=== PATIENT | male | born 1950 | race Caucasian/White ===

== ENCOUNTER 2017-12-15 10:13 | Day surgery (SDC) | payer MEDICARE ==
[2017-12-15] MEDS: NS 1,000 ML IV (12:59)
[2017-12-15 13:20] LABS: BEDSIDE GLUCOSE 110 MG/DL (80-115)
[2017-12-15] MEDS ORDERED: LIDOCAINE 2% INJ 100 MG/5 ML SDV (FOR ANES.) As Ordered (13:31)
[2017-12-15] MEDS ORDERED: PROPOFOL 200 MG/20 ML VIAL As Ordered (13:31)
== END 2017-12-15 14:26 | disposition home or self-care (01) ==
LOC: M OPP 10:13
DX: Z12.11 Encounter for screening for malignant neoplasm of colon (principal); Z86.010 Personal history of colon polyps; D12.5 Benign neoplasm of sigmoid colon; K64.0 First degree hemorrhoids; K57.30 Diverticulosis of large intestine without perforation or abscess without bleeding; I10 Essential (primary) hypertension; I35.9 Nonrheumatic aortic valve disorder, unspecified; R01.1 Cardiac murmur, unspecified; E11.9 Type 2 diabetes mellitus without complications; M10.9 Gout, unspecified; E03.9 Hypothyroidism, unspecified; R12 Heartburn; K21.9 Gastro-esophageal reflux disease without esophagitis; R06.02 Shortness of breath; M19.90 Unspecified osteoarthritis, unspecified site; F41.9 Anxiety disorder, unspecified; F32.9 Major depressive disorder, single episode, unspecified; G47.30 Sleep apnea, unspecified; R06.83 Snoring; E66.9 Obesity, unspecified; Z79.82 Long term (current) use of aspirin; Z79.899 Other long term (current) drug therapy; Z87.442 Personal history of urinary calculi
CPT/HCPCS: 45385

== ENCOUNTER 2019-03-22 14:24 | Outpatient (RCR) | payer MEDICARE ==
--- NOTE | 2019-03-10 13:57 | CARECAPL ---
Assessment Account #s: Initial Assessment General Diagnoses: AVR Date of event: Jan 13, 2019 Physician: TEO LAWRENCE MD Allergies: Coded Allergies: No Known Allergies (Unverified , 12/07/17) Date Entered Program: Mar 10, 2019 Risk strat for cardiac event: High Exercise Prescription Plan educate and increase endurance through monitored exercise Modalities initiated: Nustep (will add resistance 1 for 10 minutes), Arm Aerometer (will add resistance 1.0 for 6 minutes), Dumbells (will add 1lb weights 8-10 reps), Recumbent Bike (will add resistance 1 for 6 minutes) Frequency: 2 Duration (Minutes) 30-60 minutes total exercise a day. 15-20 work intervals in minutes. prn rest intervals in minutes. Functional Capacity Goal Sustained Metabolic Equivalent of a task (MET) goal of 3.0-4.0 for 15-20 minutes. Intensity: 3-Moderate Progression (METS) Increase by: 0.5 METS every: 3-5 sessions Angina with ex: No Target Heart Rate rest + 35-40 per beta ronnell therapy Resistance Training: Yes Weight (pounds): 1 Reps: 8-12 Medications Scheduled Allopurinol (Zyloprim), 300 MG PO DAILY, (Reported) Amlodipine/Atorvastatin (Amlodipine-Atorvast 5-10 mg), 10 TAB PO DAILY, (Reported) Aspirin (Aspirin EC), 81 MG PO DAILY, (Reported) Atorvastatin Calcium (Atorvastatin Calcium), 40 MG PO DAILY, (Reported) Bupropion Hcl (Bupropion Xl), 150 MG PO DAILY, (Reported) Cetirizine HCl (All Day Allergy), 10 MG PO DAILY, (Reported) Chlorthalidone (Chlorthalidone), 25 MG PO DAILY, (Reported) Citalopram Hydrobromide (Citalopram HBr), 20 MG PO DAILY, (Reported) Colchicine (Colchicine), 0.6 MG PO DAILY, (Reported) Insulin Aspart (Novolog Flexpen), 8 UNITS SC QAM, (Reported) Insulin Aspart (Novolog Flexpen), 18 UNITS SC QPM, (Reported) Insulin Glargine (Lantus), 45 UNITS SC QAM, (Reported) Insulin Glargine (Lantus), 65 UNITS SC QHS, (Reported) Levothyroxine Sodium (Levothyroxine Sodium), 75 MCG PO DAILY, (Reported) Liraglutide (Victoza 2-Christopher), 1.8 MG SC DAILY, (Reported) Metformin HCl (Metformin HCl), 1,500 MG PO DAILY, (Reported) Metoprolol Succinate (Metoprolol Succinate), 75 MG PO DAILY, (Reported) [place]-3/Dha/Epa/Fish Oil (Fish Oil 1,200 mg Softgel), 1 CAP PO DAILY, (Reported) Omeprazole (Omeprazole), 20 MG PO DAILY, (Reported) Valsartan (Valsartan), 160 MG PO DAILY, (Reported) Scheduled PRN Lidocaine (Lidocaine), 5 % EX PRN PRN for PAIN, (Reported) Target Goals Individual exercise Rx (1) BP 140/90 or 130/80 if DM or CKD (1) Aerobic active 30+min 5 days per week (1) Nutrition Date: Mar 10, 2019 Assessment: Initial Assessment Lipids Total Cholesterol (119), High Density Lipids (HDL) (47), Low Density Lipids (LDL) (61), Triglycerides (45), Lipid med/supplement (atorvastatin) Duration 10/27/18 Lipid- med/supplement atorvastatin Diabetes medication victoza, novolog, lantus and metformin Monitor Blood Sugar at home: Yes Frequency daily Weight Management Weight (lbs): 261.4 Height (inches): 70 Waist Circumference (Inches): 51 BMI: 37.45 Weight goal: 180 Special Diet: mediteranean diet Alcohol: special Alcohol Type: beer Alcohol Amount: 1 Diet Access Tool: Rate your plate Score: 45 Intervention Work Order Clerk Consult: No Nurse/patient discussion: Yes Dietary Goals eat healthier and healthier portions Diet Class: Yes Referral to Diabetes education: No Referral to lipid clinic: No Referral to weight mangement p: No Target goal LDL-C<100 if triglycerides are >200 Non-HDL-C should be <130 (1) LDL-C<70 for high risk patients (4) HbA1c<7% (1) BMI<25 Waist cir<40in M/<35in F (1) Education Date: Mar 10, 2019 Assessment: Initial Assessment Learning Barriers: ready Knowledge Test Score: 8 Family Support: Yes Tobacco use: No Quit: never smoked Target Goals Complete cessation of tobacco use (1). Psychosocial Date: Mar 10, 2019 Assessment: Initial Assessment Psych Test (Initial/Discharge) Tool Used: CESD Score: 20 (results faxed to Dr. Bennett's office for review) Intervention Physician Consult: No Physician Referral: No Psychotropic medication celexa, bupropion Target Goal Assess presence or absence of depression using a valid screening tool (1). Maximize coping skills (2). Positive support system (2). Patient/Program Goal Preventative Medication: Yes Aspirin, Yes Beta blockade (metoprolol succinate), Yes Statin/OTR lipid Lowering (atorvastatin), Yes Other (valsartan and norvasc) Fall Risk Assess: Yes Provider Assessment Provider Assessment: Proceed with rehab Yessi Renee RN Mar 10, 2019 13:57
[~2019-03-22 14:24] MED LIST: AMLO-183 PO; ASPI81TA26 PO; ATOR40TA75 PO; BUPR150T3 PO; CHLO25TA PO; CITA20TA6 PO; COLC1TAB13 PO; HM A10TA PO; INSULANT SC; LEVO75TA4 PO; LIDO4CRE4 EX; METF500T13 PO; METO1TAB7 PO; NOVOINJ3 SC; OMEG12003 PO; OMEP20CA3 PO; VALS1TAB67 PO; VICT18IN SC; ZYLO300T6 PO
--- NOTE | 2019-04-03 14:55 | CARECAPL ---
Assessment Account #s: Re-Assessment I General Diagnoses: AVR Date of event: Jan 13, 2019 Physician: TEO LAWRENCE MD Allergies: Coded Allergies: No Known Allergies (Unverified , 12/07/17) Date Entered Program: Mar 10, 2019 Risk strat for cardiac event: High Exercise Date: Apr 03, 2019 Assessment: Re-Assessment I Exercise Prescription Modalities initiated: Nustep (l1 mts 2.4 rpe 3), Arm Aerometer ( 1.0 mts 1.6 rpe 3), Recumbent Bike (R1 mts 2.6 rpe 3) Frequency: 1 Duration (Minutes) 30-60 minutes total exercise a day. 8-10 work intervals in minutes. prn rest intervals in minutes. Functional Capacity Goal Sustained Metabolic Equivalent of a task (MET) goal of 3.0-4.0 for 15-20 minutes. Progression (METS) Increase by: .5 METS every: 15-20 sessions Weight (pounds): 1.0 Reps: 6-8 Medications Scheduled Allopurinol (Zyloprim), 300 MG PO DAILY, (Reported) Amlodipine/Atorvastatin (Amlodipine-Atorvast 5-10 mg), 10 TAB PO DAILY, ( Reported) Aspirin (Aspirin EC), 81 MG PO DAILY, (Reported) Atorvastatin Calcium (Atorvastatin Calcium), 40 MG PO DAILY, (Reported) Bupropion Hcl (Bupropion Xl), 150 MG PO DAILY, (Reported) Cetirizine HCl (All Day Allergy), 10 MG PO DAILY, (Reported) Chlorthalidone (Chlorthalidone), 25 MG PO DAILY, (Reported) Citalopram Hydrobromide (Citalopram HBr), 20 MG PO DAILY, (Reported) Colchicine (Colchicine), 0.6 MG PO DAILY, (Reported) Insulin Aspart (Novolog Flexpen), 8 UNITS SC QAM, (Reported) Insulin Aspart (Novolog Flexpen), 18 UNITS SC QPM, (Reported) Insulin Glargine (Lantus), 45 UNITS SC QAM, (Reported) Insulin Glargine (Lantus), 65 UNITS SC QHS, (Reported) Levothyroxine Sodium (Levothyroxine Sodium), 75 MCG PO DAILY, (Reported) Liraglutide (Victoza 2-Christopher), 1.8 MG SC DAILY, (Reported) Metformin HCl (Metformin HCl), 1,500 MG PO DAILY, (Reported) Metoprolol Succinate (Metoprolol Succinate), 75 MG PO DAILY, (Reported) [place]-3/Dha/Epa/Fish Oil (Fish Oil 1,200 mg Softgel), 1 CAP PO DAILY, (Reported) Omeprazole (Omeprazole), 20 MG PO DAILY, (Reported) Valsartan (Valsartan), 160 MG PO DAILY, (Reported) Scheduled PRN Lidocaine (Lidocaine), 5 % EX PRN PRN for PAIN, (Reported) Current BP 144/58 Med Change: No Education Goals Met: No (poor attendance) Target Goals Individual exercise Rx (1) BP 140/90 or 130/80 if DM or CKD (1) Aerobic active 30+min 5 days per week (1) Nutrition Date: Apr 03, 2019 Assessment: Re-Assessment I Current Weight (pounds): 261.4 Education Goals Met: No (poor attendance) Target goal LDL-C<100 if triglycerides are >200 Non-HDL-C should be <130 (1) LDL-C<70 for high risk patients (4) HbA1c<7% (1) BMI<25 Waist cir<40in M/<35in F (1) Education Date: Apr 03, 2019 Assessment: Re-Assessment I Education Goals Met: No (poor attendance) Target Goals Complete cessation of tobacco use (1). Psychosocial Date: Apr 03, 2019 Assessment: Re-Assessment I Stress Management Class: No Uses Stress Management Skills: No Education Goals Met: No (poor attendance) Target Goal Assess presence or absence of depression using a valid screening tool (1). Maximize coping skills (2). Positive support system (2). Provider Assessment Session Number: 2 Provider Assessment: No changes (attended 2 classes in last 30days) Lyn York RN Apr 03, 2019 14:55
== END 2019-04-02 ==
LOC: M CR 14:24
PROVIDERS: ATTEND Internal Medicine
DX: Z85.3 Personal history of malignant neoplasm of breast (principal); I35.0 Nonrheumatic aortic (valve) stenosis

== ENCOUNTER 2019-05-01 14:24 | Outpatient (RCR) | payer MEDICARE ==
--- NOTE | 2019-04-26 11:00 | CARECAPL ---
Assessment Account #s: Re-Assessment II General Diagnoses: AVR Date of event: Jan 13, 2019 Physician: TEO LAWRENCE MD Allergies: Coded Allergies: No Known Allergies (Unverified , 12/07/17) Date Entered Program: Mar 10, 2019 Risk strat for cardiac event: High Exercise Date: Apr 21, 2019 Assessment: Re-Assessment II Exercise Prescription Plan educate and increase endurance and flexibility through monitored exercise Modalities initiated: Nustep (resistance 3 for 10 minutes mets 3.3 RPE 4), Arm Aerometer (resistance of 1.5 for 8 minutes mets 1.6 rpe 3), Dumbells (3lbs 2 sets 8-12 reps for 8 minutes RPE 3), Recumbent Bike (resistance of 2 for 8 minutes mets 3.2 rpe 4) Frequency: 2 Duration (Minutes) 30-60 minutes total exercise a day. 15-20 work intervals in minutes. prn rest intervals in minutes. Functional Capacity Goal Sustained Metabolic Equivalent of a task (MET) goal of 3.0-4.0 for 15-20 minutes. Intensity: 3-Moderate Progression (METS) Increase by: 0.5 METS every: 3-5 sessions Angina with ex: No Target Heart Rate rest + 35-40 per beta ronnell therapy Resistance Training: Yes Weight (pounds): 3 Reps: 8-12 Resting 138/80 Peak Exercise BP 160/80 Meds metoprolol, valsartan and amlodipine Medications Scheduled Allopurinol (Zyloprim), 300 MG PO DAILY, (Reported) Amlodipine/Atorvastatin (Amlodipine-Atorvast 5-10 mg), 10 TAB PO DAILY, (Reported) Aspirin (Aspirin EC), 81 MG PO DAILY, (Reported) Atorvastatin Calcium (Atorvastatin Calcium), 40 MG PO DAILY, (Reported) Bupropion Hcl (Bupropion Xl), 150 MG PO DAILY, (Reported) Cetirizine HCl (All Day Allergy), 10 MG PO DAILY, (Reported) Chlorthalidone (Chlorthalidone), 25 MG PO DAILY, (Reported) Citalopram Hydrobromide (Citalopram HBr), 20 MG PO DAILY, (Reported) Colchicine (Colchicine), 0.6 MG PO DAILY, (Reported) Insulin Aspart (Novolog Flexpen), 8 UNITS SC QAM, (Reported) Insulin Aspart (Novolog Flexpen), 18 UNITS SC QPM, (Reported) Insulin Glargine (Lantus), 45 UNITS SC QAM, (Reported) Insulin Glargine (Lantus), 65 UNITS SC QHS, (Reported) Levothyroxine Sodium (Levothyroxine Sodium), 75 MCG PO DAILY, (Reported) Liraglutide (Victoza 2-Christopher), 1.8 MG SC DAILY, (Reported) Metformin HCl (Metformin HCl), 1,500 MG PO DAILY, (Reported) Metoprolol Succinate (Metoprolol Succinate), 75 MG PO DAILY, (Reported) [place]-3/Dha/Epa/Fish Oil (Fish Oil 1,200 mg Softgel), 1 CAP PO DAILY, (Reported) Omeprazole (Omeprazole), 20 MG PO DAILY, (Reported) Valsartan (Valsartan), 160 MG PO DAILY, (Reported) Scheduled PRN Lidocaine (Lidocaine), 5 % EX PRN PRN for PAIN, (Reported) Current BP 138/80 Med Change: No Intervention Education: Ex safety (patient understands to drink plenty of water, wear comfortable clothing and shoes.), RPE Scale (patient demonstrates understanding), Equipment orientation (patient needs minimal assistance with equipment), warm up/cool down (patient demonstrates understanding) Target Goals Individual exercise Rx (1) BP 140/90 or 130/80 if DM or CKD (1) Aerobic active 30+min 5 days per week (1) Nutrition Date: Apr 26, 2019 Assessment: Re-Assessment II Med Change: No Medication Change: No Random Blood Sugar: 145 Blood sugar in range: Yes Current Weight (pounds): 262 Weight Goal 160 Intervention Book Solicitor Consult: No Nurse/patient discussion: No Diet Class: No Target goal LDL-C<100 if triglycerides are >200 Non-HDL-C should be <130 (1) LDL-C<70 for high risk patients (4) HbA1c<7% (1) BMI<25 Waist cir<40in M/<35in F (1) Education Date: Apr 26, 2019 Assessment: Re-Assessment II Target Goals Complete cessation of tobacco use (1). Psychosocial Date: Apr 26, 2019 Med Change: No Stress Management Class: No Uses Stress Management Skills: No Target Goal Assess presence or absence of depression using a valid screening tool (1). Maximize coping skills (2). Positive support system (2). Patient/Program Goal Preventative Medication: Yes Aspirin, Yes Beta blockade, Yes Statin/OTR lipid Lowering, Yes Other (valsartan and amlodipine) Fall Risk Assess: Yes (no fall risk) Provider Assessment Session Number: 5 Provider Assessment: Proceed with rehab (not progressing d/t attendance only attended 3 classes in a month) Yessi Renee RN Apr 26, 2019 11:00
[~2019-05-01 14:24] MED LIST changes: -OMEP20CA3 PO; +OMEP20CA4 PO
== END 2019-05-03 ==
LOC: M CR 14:24
PROVIDERS: ATTEND Internal Medicine
DX: Z95.3 Presence of xenogenic heart valve (principal); I35.0 Nonrheumatic aortic (valve) stenosis

== ENCOUNTER 2019-06-01 13:21 | Outpatient (RCR) | payer MEDICARE ==
--- NOTE | 2019-05-17 08:26 | CARECAPL ---
Assessment Account #s: Re-Assessment II (reassessment III) General Diagnoses: AVR Date of event: Jan 13, 2019 Physician: TEO LAWRENCE MD Allergies: Coded Allergies: No Known Allergies (Unverified , 12/07/17) Date Entered Program: Mar 10, 2019 Risk strat for cardiac event: High Exercise Date: May 17, 2019 Assessment: Re-Assessment II (reassessment III) Exercise Prescription Modalities initiated: Nustep (L3 mts 2.40 rpe 3 12 minutes), Arm Aerometer (1.5 mts 1.60 rpe 3 8 minutes), Dumbells, Recumbent Bike (klR2 mts 3.20 rpe 3 8 minutes) Duration (Minutes) minutes total exercise a day. work intervals in minutes. rest intervals in minutes. Functional Capacity Goal Sustained Metabolic Equivalent of a task (MET) goal of for minutes. Progression (METS) Increase by: METS every: sessions Angina with ex: No Resistance Training: Yes Weight (pounds): 4 Reps: 8-12 Medications Scheduled Allopurinol (Zyloprim), 300 MG PO DAILY, (Reported) Amlodipine/Atorvastatin (Amlodipine-Atorvast 5-10 mg), 10 TAB PO DAILY, (Reported) Aspirin (Aspirin EC), 81 MG PO DAILY, (Reported) Atorvastatin Calcium (Atorvastatin Calcium), 40 MG PO DAILY, (Reported) Bupropion Hcl (Bupropion Xl), 150 MG PO DAILY, (Reported) Cetirizine HCl (All Day Allergy), 10 MG PO DAILY, (Reported) Chlorthalidone (Chlorthalidone), 25 MG PO DAILY, (Reported) Citalopram Hydrobromide (Citalopram HBr), 20 MG PO DAILY, (Reported) Colchicine (Colchicine), 0.6 MG PO DAILY, (Reported) Insulin Aspart (Novolog Flexpen), 8 UNITS SC QAM, (Reported) Insulin Aspart (Novolog Flexpen), 18 UNITS SC QPM, (Reported) Insulin Glargine (Lantus), 45 UNITS SC QAM, (Reported) Insulin Glargine (Lantus), 65 UNITS SC QHS, (Reported) Levothyroxine Sodium (Levothyroxine Sodium), 75 MCG PO DAILY, (Reported) Liraglutide (Victoza 2-Christopher), 1.8 MG SC DAILY, (Reported) Metformin HCl (Metformin HCl), 1,500 MG PO DAILY, (Reported) Metoprolol Succinate (Metoprolol Succinate), 75 MG PO DAILY, (Reported) [place]-3/Dha/Epa/Fish Oil (Fish Oil 1,200 mg Softgel), 1 CAP PO DAILY, (Reported) Omeprazole (Omeprazole), 20 MG PO DAILY, (Reported) Valsartan (Valsartan), 160 MG PO DAILY, (Reported) Scheduled PRN Lidocaine (Lidocaine), 5 % EX PRN PRN for PAIN, (Reported) Current BP 126/70 Med Change: No Education Goals Met: No (progressing toward goals) Target Goals Individual exercise Rx (1) BP 140/90 or 130/80 if DM or CKD (1) Aerobic active 30+min 5 days per week (1) Nutrition Date: May 17, 2019 Assessment: Re-Assessment II (reassessment III) Diabetes Diabetes: Yes Fasting Blood Sugar: 106 Medication Change: No Random Blood Sugar: 106 Blood sugar in range: Yes Current Weight (pounds): 262.2 Weight Goal 200 Education Goals Met: No (progressing toward goals) Target goal LDL-C<100 if triglycerides are >200 Non-HDL-C should be <130 (1) LDL-C<70 for high risk patients (4) HbA1c<7% (1) BMI<25 Waist cir<40in M/<35in F (1) Education Date: May 17, 2019 Assessment: Re-Assessment II (Reassessment III) Education Goals Met: No (progressing toward goals) Target Goals Complete cessation of tobacco use (1). Psychosocial Date: May 17, 2019 Assessment: Re-Assessment II (reassessment III) Education Goals Met: No (progressing toward goals) Target Goal Assess presence or absence of depression using a valid screening tool (1). Maximize coping skills (2). Positive support system (2). Provider Assessment Session Number: 7 Provider Assessment: No changes (poor attendance) Lyn York RN May 17, 2019 08:26
== END 2019-06-03 ==
LOC: M CR 13:21
PROVIDERS: ATTEND Internal Medicine
DX: Z95.3 Presence of xenogenic heart valve (principal)

== ENCOUNTER 2019-06-08 14:20 | Outpatient (RCR) | payer MEDICARE ==
--- NOTE | 2019-06-08 15:03 | CARECAPL ---
Assessment Account #s: Discharge General Diagnoses: AVR Date of event: Jan 13, 2019 Physician: TEO LAWRENCE MD Allergies: Coded Allergies: No Known Allergies (Unverified , 12/07/17) Date Entered Program: Mar 10, 2019 Risk strat for cardiac event: High Exercise Date: Jun 08, 2019 Assessment: Followup/Discharge Stages of change: Contemplate Exercise Prescription Plan educate about cardiovascular disease and increase endurance, strength and flexibility through monitored exercise. Modalities initiated: Nustep (resistance 4 for 12 minutes mets 2.7 RPE 3), Arm Aerometer (resistance of 2.5 for 10 minutes mets 2.0 RPE 3), Dumbells (5lbs 2 sets 15 reps rpe 3), Recumbent Bike (resistance 2 for 8 minutes mets 3.2 RPE 4) Frequency: 1-2 Duration (Minutes) 30 - 60 minutes total exercise a day. 15 - 20 work intervals in minutes. PRN rest intervals in minutes. Functional Capacity Goal Sustained Metabolic Equivalent of a task (MET) goal of 3.0-4.0 for 15-20 minutes. Intensity: 3-Moderate Progression (METS) Increase by: 0.5 METS every: 3-5 sessions Angina with ex: Yes Target Heart Rate rest + 35-40 per beta ronnell therapy Resistance Training: Yes Weight (pounds): 5 Reps: 12-15 Hypertension: No Hypertension controlled with: Medication (metoprolol and valsartan) Resting 128/62 Peak Exercise BP 152/90 Meds Metoprolol and valsartan Medications Scheduled Allopurinol (Zyloprim), 300 MG PO DAILY, (Reported) Amlodipine/Atorvastatin (Amlodipine-Atorvast 5-10 mg), 10 TAB PO DAILY, (Reported) Aspirin (Aspirin EC), 81 MG PO DAILY, (Reported) Atorvastatin Calcium (Atorvastatin Calcium), 40 MG PO DAILY, (Reported) Bupropion Hcl (Bupropion Xl), 150 MG PO DAILY, (Reported) Cetirizine HCl (All Day Allergy), 10 MG PO DAILY, (Reported) Chlorthalidone (Chlorthalidone), 25 MG PO DAILY, (Reported) Citalopram Hydrobromide (Citalopram HBr), 20 MG PO DAILY, (Reported) Colchicine (Colchicine), 0.6 MG PO DAILY, (Reported) Insulin Aspart (Novolog Flexpen), 8 UNITS SC QAM, (Reported) Insulin Aspart (Novolog Flexpen), 18 UNITS SC QPM, (Reported) Insulin Glargine (Lantus), 45 UNITS SC QAM, (Reported) Insulin Glargine (Lantus), 65 UNITS SC QHS, (Reported) Levothyroxine Sodium (Levothyroxine Sodium), 75 MCG PO DAILY, (Reported) Liraglutide (Victoza 2-Christopher), 1.8 MG SC DAILY, (Reported) Metformin HCl (Metformin HCl), 1,500 MG PO DAILY, (Reported) Metoprolol Succinate (Metoprolol Succinate), 75 MG PO DAILY, (Reported) [place]-3/Dha/Epa/Fish Oil (Fish Oil 1,200 mg Softgel), 1 CAP PO DAILY, (Reported) Omeprazole (Omeprazole), 20 MG PO DAILY, (Reported) Valsartan (Valsartan), 160 MG PO DAILY, (Reported) Scheduled PRN Lidocaine (Lidocaine), 5 % EX PRN PRN for PAIN, (Reported) Current BP 128/62 Med Change: No Education Goals Met: Yes Target Goals Individual exercise Rx (1) BP 140/90 or 130/80 if DM or CKD (1) Aerobic active 30+min 5 days per week (1) Nutrition Date: Jun 08, 2019 Assessment: Followup/Discharge Med Change: No Medication Change: No Random Blood Sugar: 107 Blood sugar in range: Yes Diet Access Tool: Rate your plate Score: 38 Current Weight (pounds): 260 Intervention Consultant Electronics Consult: No Nurse/patient discussion: Yes Diet Class: No Referral to Diabetes education: No Referral to lipid clinic: No Referral to weight mangement p: No Education Goals Met: Yes Target goal LDL-C<100 if triglycerides are >200 Non-HDL-C should be <130 (1) LDL-C<70 for high risk patients (4) HbA1c<7% (1) BMI<25 Waist cir<40in M/<35in F (1) Education Date: Jun 08, 2019 Assessment: Followup/Discharge Knowledge Test Score: 9 Education Goals Met: Yes Target Goals Complete cessation of tobacco use (1). Psychosocial Date: Jun 08, 2019 Assessment: Followup/Discharge Psych Test (Initial/Discharge) Tool Used: CESD Score: 9 Intervention Physician Consult: No Physician Referral: No Med Change: No Stress Management Class: Yes Uses Stress Management Skills: Yes Education Goals Met: Yes Target Goal Assess presence or absence of depression using a valid screening tool (1). Maximize coping skills (2). Positive support system (2). Patient/Program Goal Preventative Medication: Yes Aspirin, Yes Beta blockade, Yes Statin/OTR lipid Lowering Fall Risk Assess: Yes (fall risk) Provider Assessment Session Number: 10 Provider Assessment: Please add/change: (discharge from program patient not progressing d/t poor attendance.) Yessi Renee RN Jun 08, 2019 15:03
== END 2019-07-03 ==
LOC: M CR 14:20
PROVIDERS: ATTEND Internal Medicine
DX: Z95.3 Presence of xenogenic heart valve (principal); I35.0 Nonrheumatic aortic (valve) stenosis

== ENCOUNTER → 2020-11-13 | Outpatient (REF) | payer MEDICARE ==
[~2020-11-13] MED LIST changes: -BUPR150T3 PO; +BUPR150T4 PO; +COLC0.6T47 PO; -COLC1TAB13 PO; +OMEP1CAP73 PO; -OMEP20CA4 PO
[2020-11-13 16:00] LABS: HEMATOCRIT 47.4 % (42.0-52.0); HEMOGLOBIN 14.5 g/dl (13.5-17.5); MEAN CORPUSCULAR HEMOGLOBIN 25.8 pg (27.0-33.0); MEAN CORPUSCULAR HGB CONC 30.6 g/dl (32.0-36.5); MEAN CORPUSCULAR VOLUME 84.2 fl (80.0-96.0); PLATELET COUNT, AUTOMATED 242 10^3/uL (150-450); RED BLOOD COUNT 5.63 10^6/uL (4.30-6.10)
[2020-11-13 16:25] LABS: WHITE BLOOD COUNT 15.7 10^3/uL (4.0-10.0)
[2020-11-13 17:50] LABS: ATYPICAL LYMPH 7 % (0-5); BASOPHILS 2 % (0-1); BLAST CELLS 2 % (0-0); EOSINOPHILS 2 % (0-3); LYMPHOCYTES 53 % (16-44); MONOCYTES 4 % (0-5); NEUTROPHILS 26 % (28-66); PLATELET ESTIMATE NORMAL (NORMAL)
[2020-11-13 17:51] LABS: ANISOCYTOSIS 1+; HYPOCHROMASIA 1+
== END ==
LOC: M LAB REF 15:12
PROVIDERS: ATTEND Internal Medicine
DX: D72.829 Elevated white blood cell count, unspecified (principal)

== ENCOUNTER → 2021-01-21 | Outpatient (CLI) | payer MEDICARE ==
[~2021-01-21] MED LIST changes: +AMLO10TA PO; +BUPR-69 PO; +BUPR150T12 PO; -BUPR150T4 PO; +CITA40TA4 PO; +CLOP75TA2 PO; +GASTROGRAFIN SOLUTION 30ML (Q9963) As Ordered ONE; +ISOVUE-370 76% 100ML VIAL As Ordered ONE; +LEVO50TA5 PO; +SEMA1PEN2 SQ; +VALS1TAB66 PO
--- NOTE | 2021-01-22 08:42 | REP ---
INDICATION: CLL, SLL. COMPARISON: 07/23/2017 the only prior TECHNIQUE: Standard helical technique after the administration of 100 cc Isovue 370 FINDINGS: The mediastinum and pulmonary amy are stable. No mass or adenopathy has developed. There are no pleural or pericardial effusions. The imaged osseous structures are stable. Evaluation of the lung arce shows no new abnormal nodules, masses, or opacities. IMPRESSION: Stable CT examination of the chest. There is no evidence of acute disease. <Electronically signed by Kaden Lopez > 01/22/21 [id number]
--- NOTE | 2021-01-22 08:51 | REP ---
INDICATION: CLL, SLL. COMPARISON: None there are no nodes in this patient's synapse power jacket indicating that the patient has had prior abdominal CT scans and there are no priors on our PACS system. TECHNIQUE: Contrast-enhanced helical technique after the intravenous administration of 100 cc Isovue 370 and oral bowel preparatory contrast administration prior to the exam. FINDINGS: There is a nodular surface to the liver. There is an abnormal caudate left lobe ratio. There is mild splenomegaly. The gallbladder is within normal limits. The pancreas and adrenal glands are within normal limits. There are multiple low-density lesions within an arising from each renal cortex left greater than right. The largest of these measures 3.9 cm and is rising from the posterior cortex of the left kidney interpolar region. The abdominal aorta and para-aortic regions are within normal limits. The bowel loops and the mesenteries are within normal limits. There is no evidence of free fluid or free air. There is no evidence of a mass or adenopathy. Bone window technique throughout the examination shows spinal, hip, and sacroiliac joint degenerative changes. There is a mild grade 1 L5 upon S1 spondylolisthesis with bilateral L5 spondylolysis. IMPRESSION: 1. There is evidence of cirrhosis as described above. 2. There is splenomegaly. 3. Bilateral renal cysts all having a Bosniak class 1 appearance. 4. Chronic osseous changes as described. 5. Other findings as described above. <Electronically signed by Kaden Lopez > 01/22/21 [id number]
== END ==
LOC: M RAD 14:57
PROVIDERS: ATTEND Internal Medicine Medical Oncology
DX: D72.829 Elevated white blood cell count, unspecified (principal)
CPT/HCPCS: 71260; 74177; Q9963; Q9967

== ENCOUNTER → 2021-04-15 | Outpatient (CLI) | payer MEDICARE ==
[~2021-04-15] MED LIST changes: +ALLO300T2 PO; -CITA40TA4 PO; +CITA40TA7 PO; +CLOT1CRE56 TOP; -GASTROGRAFIN SOLUTION 30ML (Q9963) As Ordered ONE; +GNPTAB36 PO; -HM A10TA PO; -ISOVUE-370 76% 100ML VIAL As Ordered ONE; +TOPR100T PO; +ZINC1TAB2 PO
== END ==
LOC: M RAD 12:43
PROVIDERS: ATTEND Internal Medicine Medical Oncology
DX: N20.0 Calculus of kidney (principal)

== ENCOUNTER → 2021-12-16 | Outpatient (CLI) | payer MEDICARE | LOC: M RAD 08:32 | PROVIDERS: ATTEND Internal Medicine | DX: K74.69 Other cirrhosis of liver (principal) ==

== ENCOUNTER → 2022-10-12 | Outpatient (CLI) | payer OTHER | LOC: M PLAIMG 12:52 | PROVIDERS: ATTEND Nurse Practitioner Family | DX: M17.12 Unilateral primary osteoarthritis, left knee (principal) ==

== ENCOUNTER → 2022-10-15 | Outpatient (CLI) | payer OTHER | LOC: M PLAIMG 12:29 | PROVIDERS: ATTEND Nurse Practitioner Family | DX: M25.511 Pain in right shoulder (principal) ==

== ENCOUNTER → 2022-10-20 | Outpatient (REF) | LOC: M PLAIMG 11:03 | PROVIDERS: ATTEND Internal Medicine | DX: Z11.52 Encounter for screening for COVID-19 (principal) ==

== ENCOUNTER → 2022-11-30 | Outpatient (REF) | payer MEDICARE ==
[2022-11-30 18:19] LABS: ATYPICAL LYMPH 14 % (0-5); BASOPHILS 1 % (0-1); EOSINOPHILS 6 % (0-3); LYMPHOCYTES 59 % (16-44); MONOCYTES 6 % (0-5); NEUTROPHILS 14 % (28-66)
[2022-11-30 18:25] LABS: PLATELET ESTIMATE NORMAL (NORMAL)
== END ==
LOC: M LAB REF 16:17
PROVIDERS: ATTEND Internal Medicine
DX: C91.10 Chronic lymphocytic leukemia of B-cell type not having achieved remission (principal)

== ENCOUNTER → 2023-02-26 | Outpatient (REF) | payer MEDICARE ==
[2023-02-26 19:12] LABS: ATYPICAL LYMPH 52 % (0-5); BASOPHILS 3 % (0-1); EOSINOPHILS 5 % (0-3); LYMPHOCYTES 23 % (16-44); MONOCYTES 6 % (0-5); NEUTROPHILS 11 % (28-66); PLATELET ESTIMATE NORMAL (NORMAL)
== END ==
LOC: M LAB REF 16:31
PROVIDERS: ATTEND Internal Medicine
DX: C91.10 Chronic lymphocytic leukemia of B-cell type not having achieved remission (principal)

== ENCOUNTER → 2023-05-25 | Outpatient (REF) | payer MEDICARE ==
[2023-05-25 23:08] LABS: ATYPICAL LYMPH 4 % (0-5); EOSINOPHILS 5 % (0-3); LYMPHOCYTES 66 % (16-44); MONOCYTES 1 % (0-5); NEUTROPHILS 23 % (28-66); PLATELET ESTIMATE NORMAL (NORMAL)
[2023-05-25 23:09] LABS: ANISOCYTOSIS 1+
== END ==
LOC: M LAB REF 17:54
PROVIDERS: ATTEND Internal Medicine
DX: C91.10 Chronic lymphocytic leukemia of B-cell type not having achieved remission (principal)

== ENCOUNTER → 2023-06-16 | Outpatient (CLI) | payer MEDICARE | LOC: M RAD 08:12 | PROVIDERS: ATTEND Internal Medicine | DX: K74.60 Unspecified cirrhosis of liver (principal) ==

== ENCOUNTER 2023-08-02 12:44 | Day surgery (SDC) | payer MEDICARE ==
[~2023-08-02] VITALS: Ht 177.8 cm; Wt 104.9 kg
[~2023-08-02 12:44] MED LIST changes: +NS 1,000 ML IV ONE
[2023-08-02] MEDS ORDERED: LIDOCAINE 2% 100MG/5ML SDV (FOR ANES.) As Ordered ONE (14:23)
[2023-08-02] MEDS ORDERED: propofoL 200 MG/20 ML VIAL As Ordered ONE (14:23)
[2023-08-02 15:58] VITALS: TEMP 97.4
[2023-08-02 16:15] VITALS: BP 193/88; O2SAT 95
== END 2023-08-02 16:27 | disposition home or self-care (01) ==
LOC: M OPP 12:44
PROVIDERS: ATTEND Internal Medicine Gastroenterology
DX: Z86.010 Personal history of colon polyps (principal); D12.6 Benign neoplasm of colon, unspecified; K64.0 First degree hemorrhoids; K57.30 Diverticulosis of large intestine without perforation or abscess without bleeding; K22.70 Barrett's esophagus without dysplasia; R12 Heartburn; Z79.02 Long term (current) use of antithrombotics/antiplatelets; Z79.4 Long term (current) use of insulin; Z79.82 Long term (current) use of aspirin; Z79.890 Hormone replacement therapy; Z79.899 Other long term (current) drug therapy; G47.30 Sleep apnea, unspecified; Z99.89 Dependence on other enabling machines and devices; I35.9 Nonrheumatic aortic valve disorder, unspecified; E10.9 Type 1 diabetes mellitus without complications

== ENCOUNTER 2023-12-15 12:50 | Inpatient (IN) | payer MEDICARE ==
[~2023-12-15] VITALS: Ht 177.8 cm; Wt 107.3 kg
[~2023-12-15 12:50] MED LIST changes: -NS 1,000 ML IV ONE
[2023-12-15 13:38] LABS: BASO # 0.1 10^3/uL (0.0-0.2); BASO % 0.4 % (0.0-1.0); EOS # 0.5 10^3/uL (0.0-0.5); EOS % 2.6 % (0.0-3.0); HEMATOCRIT 46.9 % (42.0-52.0); HEMOGLOBIN 15.5 g/dl (13.5-17.5); LYMPH # 11.4 10^3/uL (1.5-5.0); LYMPH % 59.1 % (24.0-44.0); MEAN CORPUSCULAR HEMOGLOBIN 29.5 pg (27.0-33.0); MEAN CORPUSCULAR VOLUME 89.2 fl (80.0-96.0); MONO # 1.1 10^3/uL (0.0-0.8); MONO % 5.8 % (2.0-8.0); NEUTROPHILS # 6.1 10^3/uL (1.5-8.5); NEUTROPHILS % 31.8 % (36.0-66.0); PLATELET COUNT, AUTOMATED 183 10^3/uL (150-450); RED BLOOD COUNT 5.26 10^6/uL (4.30-6.10); WHITE BLOOD COUNT 19.3 10^3/uL (4.0-10.0)
[2023-12-15 13:58] LABS: ALBUMIN 3.1 G/DL (3.2-5.2); ALKALINE PHOSPHATASE 69 U/L (46-116); ALT/SGPT 17 U/L (7.0-40); AST/SGOT 27 U/L (<34); BILIRUBIN,DIRECT 0.3 MG/DL (<0.4); BILIRUBIN,TOTAL 1.1 MG/DL (0.3-1.2); BLOOD UREA NITROGEN 22 MG/DL (9-23); CALCIUM LEVEL 8.6 MG/DL (8.3-10.6); CARBON DIOXIDE LEVEL 24 MMOL/L (20-31); CHLORIDE LEVEL 110 MMOL/L (98-107); CK-MB VALUE MASS 2.3 NG/ML (<3.6); CPK CREATINE PHOSPHOKINASE 93 U/L (46-171); CREATININE FOR GFR 1.12 MG/DL (0.70-1.30); GLOMERULAR FILTRATION RATE > 60.0 (>42); GLUCOSE, FASTING 85 MG/DL (74-106); MB/CK RELATIVE INDEX 2.47 (< OR =4); POTASSIUM SERUM 4.5 MMOL/L (3.5-5.1); SODIUM LEVEL 141 MMOL/L (136-145); TOTAL PROTEIN 6.1 G/DL (5.7-8.2)
[2023-12-15 14:35] LABS: PROCALCITONIN 0.04 ng/ml
[2023-12-15] MEDS: NITROGLYCERIN 0.4MG SUBL TABLET SL STA (14:46)
[2023-12-15] MEDS ORDERED: ISOVUE-370 76% 100ML VIAL As Ordered ONE (14:52)
[2023-12-15 15:24] LABS: CK-MB VALUE MASS 2.1 NG/ML (<3.6)
[2023-12-15 15:27] LABS: MB/CK RELATIVE INDEX 2.3 (< OR =4)
[2023-12-15] MEDS: FUROSEMIDE 40MG/4ML VIAL IV ONE ×2 (16:10→17:58)
[2023-12-15] MEDS ORDERED: LEVO75TA4 PO (18:30)
[2023-12-15] MEDS ORDERED: METO200T28 PO (18:30)
[2023-12-15] MEDS ORDERED: PREV15TA2 PO (18:30)
[2023-12-15] MEDS ORDERED: JARD1TAB3 PO (18:35)
[2023-12-15] MEDS ORDERED: HYDR-3490 PO (18:35)
[2023-12-15] MEDS ORDERED: METF-838 PO (18:48)
[2023-12-15] MEDS ORDERED: HOME MED LIST COMPLETE! XX SCH (18:55)
[2023-12-15] MEDS: INSULIN LISPRO (NovoLOG) PER UNIT SC SCH (21:00)
[2023-12-15] MEDS ORDERED: GLUCAGON INJ 1MG VIAL SC PRN (21:35)
[2023-12-15] MEDS ORDERED: DEXTROSE 50% 50ML SYRINGE IV PRN (21:35)
[2023-12-15] MEDS ORDERED: GLUCOSE 4GM CHEW TABLET PO PRN (21:35)
[2023-12-15] MEDS ORDERED: PILL CUTTER 1 EACH XX PRN (21:35)
[2023-12-15] MEDS: FUROSEMIDE 40MG/4ML VIAL IV SCH (23:59)
[2023-12-16] MEDS ORDERED: FUROSEMIDE 40MG/4ML VIAL IV SCH (02:00)
[2023-12-16] MEDS: LEVOTHYROXINE 75MCG TABLET (0.075MG) PO SCH (06:04)
[2023-12-16 06:20] LABS: HEMATOCRIT 45.1 % (42.0-52.0); HEMOGLOBIN 14.7 g/dl (13.5-17.5); MEAN CORPUSCULAR HGB CONC 32.6 g/dl (32.0-36.5); PLATELET COUNT, AUTOMATED 172 10^3/uL (150-450); RED BLOOD COUNT 5.07 10^6/uL (4.30-6.10); WHITE BLOOD COUNT 20.9 10^3/uL (4.0-10.0)
[2023-12-16 06:48] LABS: CALCIUM LEVEL 9.3 MG/DL (8.3-10.6); CREATININE FOR GFR 1.5 MG/DL (0.70-1.30); GLOMERULAR FILTRATION RATE 48.6 (>42); POTASSIUM SERUM 4.8 MMOL/L (3.5-5.1)
[2023-12-16 06:54] LABS: ATYPICAL LYMPH 14 % (0-5); LYMPHOCYTES 41 % (16-44); MONOCYTES 8 % (0-5); NEUTROPHILS 37 % (28-66)
[2023-12-16 06:55] LABS: PLATELET ESTIMATE NORMAL (NORMAL)
[2023-12-16] MEDS ORDERED: FLUZONE HIGH DOSE(65YR UP)QUAD/PF 240MCG/0.7ML SYRINGE IM.IMMUN ONE (09:00)
[2023-12-16] MEDS: INSULIN LISPRO (NovoLOG) PER UNIT SC SCH (09:47)
[2023-12-16] MEDS: METOPROLOL SUCC (TopROL XL) 100MG *XL* TAB PO SCH (09:47)
[2023-12-16] MEDS: CLOPIDOGREL 75 MG TAB PO SCH (09:47)
[2023-12-16] MEDS: CitaloPRAM (CeleXA) 20 MG TAB PO SCH (09:47)
[2023-12-16] MEDS: ASPIRIN 81MG ENTERIC TABLET PO SCH (09:47)
[2023-12-16] MEDS: allopurinoL 300 MG TAB PO SCH (09:48)
[2023-12-16] MEDS: ATORVASTATIN 20 MG TAB PO SCH (09:48)
[2023-12-16] MEDS: OMEPRAZOLE 20MG CAP PO SCH (09:48)
[2023-12-16] MEDS: ENOXAPARIN 40MG/0.4ML SYRINGE (J1650 PER 10MG) SC SCH (09:48)
[2023-12-16] MEDS: LEVEMIR (INSULIN DETEMIR) 1 UNITS/0.01ML SC SCH (09:51)
[2023-12-16] MEDS: buPROPion 100 MG TAB PO SCH (11:08)
[2023-12-16 11:50] VITALS: BP 171/58; TEMP 97.9; O2SAT 93
[2023-12-16 12:11] VITALS: O2SAT 96
[2023-12-16 13:34] VITALS: BP 150/50; O2SAT 93
[2023-12-16 14:00] VITALS: TEMP 97.7; O2SAT 94
[2023-12-16] MEDS: TORSEMIDE 20 MG TAB PO SCH (17:44)
[2023-12-16 19:44] VITALS: BP 142/58; TEMP 97.9; O2SAT 92
[2023-12-17 06:18] VITALS: BP 146/66; TEMP 97.7; O2SAT 94
[2023-12-17 06:35] LABS: BASO # 0.1 10^3/uL (0.0-0.2); BASO % 0.5 % (0.0-1.0); EOS # 0.4 10^3/uL (0.0-0.5); EOS % 1.9 % (0.0-3.0); HEMATOCRIT 44.4 % (42.0-52.0); HEMOGLOBIN 14.4 g/dl (13.5-17.5); LYMPH # 11.5 10^3/uL (1.5-5.0); LYMPH % 58.4 % (24.0-44.0); MEAN CORPUSCULAR HEMOGLOBIN 29.1 pg (27.0-33.0); MEAN CORPUSCULAR HGB CONC 32.4 g/dl (32.0-36.5); MEAN CORPUSCULAR VOLUME 89.9 fl (80.0-96.0); MONO # 1.1 10^3/uL (0.0-0.8); MONO % 5.7 % (2.0-8.0); NEUTROPHILS # 6.6 10^3/uL (1.5-8.5); NEUTROPHILS % 33.2 % (36.0-66.0); PLATELET COUNT, AUTOMATED 173 10^3/uL (150-450); RED BLOOD COUNT 4.94 10^6/uL (4.30-6.10); WHITE BLOOD COUNT 19.6 10^3/uL (4.0-10.0)
[2023-12-17 06:53] LABS: CALCIUM LEVEL 9.1 MG/DL (8.3-10.6); CREATININE FOR GFR 1.84 MG/DL (0.70-1.30); GLOMERULAR FILTRATION RATE 38.4 (>42); POTASSIUM SERUM 4.9 MMOL/L (3.5-5.1)
[2023-12-17 10:26] VITALS: O2SAT 90
[2023-12-17 14:00] VITALS: BP 159/68; TEMP 97.7; O2SAT 91
[2023-12-17] MEDS ORDERED: FUROSEMIDE 40MG/4ML VIAL IV ONE (14:00)
[2023-12-17] MEDS: FLUZONE HIGH DOSE(65YR UP)QUAD/PF 240MCG/0.7ML SYRINGE IM.IMMUN ONE (18:08)
[2023-12-17 19:52] VITALS: BP 160/60; TEMP 97.9; O2SAT 94
[2023-12-18 05:20] VITALS: BP 188/68; TEMP 97.5; O2SAT 93
[2023-12-18 07:06] LABS: BASO # 0.1 10^3/uL (0.0-0.2); BASO % 0.5 % (0.0-1.0); EOS # 0.5 10^3/uL (0.0-0.5); EOS % 2.5 % (0.0-3.0); HEMATOCRIT 45.2 % (42.0-52.0); HEMOGLOBIN 14.9 g/dl (13.5-17.5); LYMPH # 14.5 10^3/uL (1.5-5.0); LYMPH % 67.2 % (24.0-44.0); MEAN CORPUSCULAR HEMOGLOBIN 29.3 pg (27.0-33.0); MONO # 1.1 10^3/uL (0.0-0.8); MONO % 5.2 % (2.0-8.0); NEUTROPHILS # 5.3 10^3/uL (1.5-8.5); NEUTROPHILS % 24.4 % (36.0-66.0); PLATELET COUNT, AUTOMATED 176 10^3/uL (150-450); RED BLOOD COUNT 5.08 10^6/uL (4.30-6.10); WHITE BLOOD COUNT 21.6 10^3/uL (4.0-10.0)
[2023-12-18 07:34] LABS: CALCIUM LEVEL 8.6 MG/DL (8.3-10.6); CREATININE FOR GFR 1.46 MG/DL (0.70-1.30); GLOMERULAR FILTRATION RATE 50.1 (>42)
[2023-12-18 09:15] VITALS: BP 186/99
[2023-12-18 09:20] VITALS: BP 186/99
[2023-12-18 09:45] VITALS: BP 140/56
[2023-12-18] MEDS ORDERED: LISI10TA22 PO (11:26)
[2023-12-18] MEDS ORDERED: TORS20TA2 PO (11:26)
[2023-12-18 12:30] VITALS: BP 164/60
== END 2023-12-18 13:18 | disposition home or self-care (01) | DRG 291 ==
LOC: EDBD 12:50 → M ED 12:50 → M ED INP 16:58 → ENRESERV 12-16 11:13 → M MSPAV 12-16 11:54
PROVIDERS: ADMIT Internal Medicine Nephrology; ATTEND Internal Medicine Nephrology
PROC: B246ZZZ Ultrasonography of Right and Left Heart (ICD-10-PCS; principal; 2023-12-18)
DX: I13.0 Hypertensive heart and chronic kidney disease with heart failure and stage 1 through stage 4 chronic kidney disease, or unspecified chronic kidney disease (principal); I50.33 Acute on chronic diastolic (congestive) heart failure; J98.11 Atelectasis; C91.10 Chronic lymphocytic leukemia of B-cell type not having achieved remission; N17.9 Acute kidney failure, unspecified; E11.22 Type 2 diabetes mellitus with diabetic chronic kidney disease; E78.5 Hyperlipidemia, unspecified; E66.9 Obesity, unspecified; G47.33 Obstructive sleep apnea (adult) (pediatric); K74.60 Unspecified cirrhosis of liver; R16.1 Splenomegaly, not elsewhere classified; E11.42 Type 2 diabetes mellitus with diabetic polyneuropathy; M10.9 Gout, unspecified; M19.90 Unspecified osteoarthritis, unspecified site; N18.30 Chronic kidney disease, stage 3 unspecified; K21.9 Gastro-esophageal reflux disease without esophagitis; K64.0 First degree hemorrhoids; K57.30 Diverticulosis of large intestine without perforation or abscess without bleeding; I25.10 Atherosclerotic heart disease of native coronary artery without angina pectoris; J32.9 Chronic sinusitis, unspecified; F32.A Depression, unspecified; E03.9 Hypothyroidism, unspecified; I08.3 Combined rheumatic disorders of mitral, aortic and tricuspid valves; F41.9 Anxiety disorder, unspecified; Z98.41 Cataract extraction status, right eye; Z98.42 Cataract extraction status, left eye; Z95.2 Presence of prosthetic heart valve; Z79.82 Long term (current) use of aspirin; Z79.4 Long term (current) use of insulin; Z79.890 Hormone replacement therapy; Z79.899 Other long term (current) drug therapy; Z79.02 Long term (current) use of antithrombotics/antiplatelets; Z68.33 Body mass index [BMI] 33.0-33.9, adult

== ENCOUNTER → 2023-12-22 | Outpatient (REF) | payer MEDICARE ==
[~2023-12-22] MED LIST changes: +HYDR-3490 PO; +JARD1TAB3 PO; +LISI10TA22 PO; +METF-838 PO; +METO200T28 PO; +PREV15TA2 PO; +TORS20TA2 PO
[2023-12-22 17:14] LABS: ATYPICAL LYMPH 3 % (0-5); EOSINOPHILS 6 % (0-3); LYMPHOCYTES 50 % (16-44); MONOCYTES 5 % (0-5); NEUTROPHILS 36 % (28-66)
[2023-12-22 17:15] LABS: PLATELET ESTIMATE NORMAL (NORMAL)
== END ==
LOC: M LAB REF 15:57
PROVIDERS: ATTEND Internal Medicine
DX: I13.10 Hypertensive heart and chronic kidney disease without heart failure, with stage 1 through stage 4 chronic kidney disease, or unspecified chronic kidney disease (principal); D72.829 Elevated white blood cell count, unspecified; N18.9 Chronic kidney disease, unspecified

== ENCOUNTER → 2024-01-25 | Outpatient (CLI) | payer MEDICARE ==
[~2024-01-25] MED LIST changes: +METO200T15 PO; -METO200T28 PO
[2024-01-25 16:15] LABS: BASO # 0.1 10^3/uL (0.0-0.2); BASO % 0.4 % (0.0-1.0); EOS # 0.4 10^3/uL (0.0-0.5); EOS % 3.3 % (0.0-3.0); HEMATOCRIT 37.1 % (42.0-52.0); HEMOGLOBIN 12.2 g/dl (13.5-17.5); LYMPH # 6.4 10^3/uL (1.5-5.0); LYMPH % 48.8 % (24.0-44.0); MEAN CORPUSCULAR HEMOGLOBIN 30.3 pg (27.0-33.0); MEAN CORPUSCULAR HGB CONC 32.9 g/dl (32.0-36.5); MEAN CORPUSCULAR VOLUME 92.3 fl (80.0-96.0); MONO # 0.6 10^3/uL (0.0-0.8); MONO % 4.5 % (2.0-8.0); NEUTROPHILS # 5.7 10^3/uL (1.5-8.5); NEUTROPHILS % 42.8 % (36.0-66.0); PLATELET COUNT, AUTOMATED 123 10^3/uL (150-450); RED BLOOD COUNT 4.02 10^6/uL (4.30-6.10); WHITE BLOOD COUNT 13.2 10^3/uL (4.0-10.0)
[2024-01-25 16:44] LABS: CALCIUM LEVEL 9.3 MG/DL (8.3-10.6); CREATININE FOR GFR 2.34 MG/DL (0.70-1.30); POTASSIUM SERUM 4.2 MMOL/L (3.5-5.1)
== END ==
LOC: M LAB 15:06
PROVIDERS: ATTEND Physician Assistant
DX: I50.31 Acute diastolic (congestive) heart failure (principal); I35.0 Nonrheumatic aortic (valve) stenosis

== ENCOUNTER → 2024-01-28 | Outpatient (REF) | payer MEDICARE | LOC: M LAB REF 16:20 | PROVIDERS: ATTEND Internal Medicine | DX: I50.31 Acute diastolic (congestive) heart failure (principal) ==

== ENCOUNTER → 2024-02-03 | Outpatient (REF) | payer MEDICARE ==
[2024-02-03 18:17] LABS: URIC ACID 6.2 MG/DL (3.7-9.2)
[2024-02-03 18:19] LABS: PHOSPHORUS LEVEL 4.3 MG/DL (2.4-5.1); PTH INTACT 114.3 PG/ML (18.5-88.0)
[2024-02-03 19:00] LABS: HEPATITIS C VIRUS ABY INDEX 0.03 INDEX (<0.8)
== END ==
LOC: M LAB REF 16:23
PROVIDERS: ATTEND Internal Medicine
DX: C91.10 Chronic lymphocytic leukemia of B-cell type not having achieved remission (principal); N18.31 Chronic kidney disease, stage 3a; N17.9 Acute kidney failure, unspecified; Z13.89 Encounter for screening for other disorder

== ENCOUNTER → 2024-04-27 | Outpatient (REF) | LOC: M PLAIMG 12:28 | PROVIDERS: ATTEND Nurse Practitioner Family | DX: M25.572 Pain in left ankle and joints of left foot (principal) ==

== ENCOUNTER → 2024-05-18 | Outpatient (CLI) | payer MEDICARE | LOC: M RAD 06:50 | PROVIDERS: ATTEND Internal Medicine | DX: K74.69 Other cirrhosis of liver (principal); N18.32 Chronic kidney disease, stage 3b; K82.4 Cholesterolosis of gallbladder ==

== ENCOUNTER → 2024-09-22 | Outpatient (REF) | payer MEDICARE ==
[~2024-09-22] MED LIST changes: -LIDO4CRE4 EX; +LIDO5CRE7 EX
== END ==
LOC: M LAB REF 16:27
PROVIDERS: ATTEND Internal Medicine
DX: I77.810 Thoracic aortic ectasia (principal)

== ENCOUNTER → 2025-01-01 | Outpatient (CLI) | payer MEDICARE, OTHER | LOC: M RAD 08:35 | PROVIDERS: ATTEND Internal Medicine | DX: K74.69 Other cirrhosis of liver (principal) ==

== ENCOUNTER → 2025-05-25 | Outpatient (CLI) | payer MEDICARE, OTHER ==
[~2025-05-25] MED LIST changes: +AMLO-751 PO; -AMLO10TA PO
[2025-05-25 17:33] LABS: CHOLESTEROL LEVEL 128.0 MG/DL (<200); CHOLESTEROL RISK RATIO 2.63 (<5); LDL CHOLESTEROL 59.9 MG/DL (<100); NON-HDL-C 79.5 MG/DL; TRIGLYCERIDES LEVEL 98.0 MG/DL (<150)
== END ==
LOC: M PLALAB 15:00
PROVIDERS: ATTEND Nurse Practitioner Acute Care
DX: E78.2 Mixed hyperlipidemia (principal)

== ENCOUNTER → 2025-06-12 | Outpatient (REF) | payer MEDICARE ==
[~2025-06-12] MED LIST changes: -COLC0.6T47 PO; +COLC0.6T53 PO
[2025-06-12 19:44] LABS: ATYPICAL LYMPH 1 % (0-5); EOSINOPHILS 1 % (0-3); LYMPHOCYTES 71 % (16-44); MONOCYTES 2 % (0-5); NEUTROPHILS 25 % (28-66)
[2025-06-12 19:45] LABS: PLATELET ESTIMATE NORMAL (NORMAL)
== END ==
LOC: M LAB REF 18:03
PROVIDERS: ATTEND Internal Medicine
DX: C91.10 Chronic lymphocytic leukemia of B-cell type not having achieved remission (principal)

== ENCOUNTER → 2025-07-10 | Outpatient (CLI) | payer MEDICARE | LOC: M RAD 08:10 | PROVIDERS: ATTEND Internal Medicine | DX: I13.0 Hypertensive heart and chronic kidney disease with heart failure and stage 1 through stage 4 chronic kidney disease, or unspecified chronic kidney disease (principal); N18.31 Chronic kidney disease, stage 3a; K74.69 Other cirrhosis of liver ==